=== PATIENT | female | born 1990 | race African-American/Black ===

== ENCOUNTER 2016-12-02 00:32 | Emergency (ER) | payer MEDICAID ==
[~2016-12-02] VITALS: Ht 177.8 cm; Wt 61.2 kg
[2016-12-02 00:45] VITALS: BP 140/87
[2016-12-02] MEDS ORDERED: Tylenol #3 tab (300mg/30mg) ORAL ONE (01:15)
[2016-12-02] MEDS ORDERED: Ketorolac 30mg Inj IM ONE (02:00)
[2016-12-02] MEDS ORDERED: CYCLOBENZAPRINE10 MG ORAL (02:42)
[2016-12-02] MEDS ORDERED: ACETAMINOPHEN-1 EAC1 ORAL (02:42)
[2016-12-02 02:50] VITALS: BP 138/85
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
--- NOTE | 2016-12-02 08:33 | Diagnostic Imaging Report ---
Indications: Cephalgia Technique: Continuous helical CT imaging of the brain was performed with automatic exposure control on a Siemens sensation [address] scanner. Axial and coronal images were reconstructed at 5 mm slice thickness and interval. CTDI volume(s): 70 mGy Total DLP: Routine 18 mGy-cm Findings: Comparison: None. Intracranial anatomy is unremarkable. No evidence of mass or hemorrhage, other attenuation abnormality, mass effect, midline shift, hydrocephalus or increased intracranial pressure. Bone window images are unremarkable. Visualized paranasal sinuses and mastoid air cells are clear. IMPRESSION: Negative noncontrast CT scan of the brain . This correlates with [facility] preliminary report. The CT scanner at [facility] is accredited by the [employer] and the scans are performed using protocols designed to limit radiation exposure to as low as reasonably achievable to attain images of sufficient resolution adequate for diagnostic evaluation.
== END 2016-12-02 02:50 | disposition home or self-care (01) ==
LOC: EMR 00:55
DX: S20.212A Contusion of left front wall of thorax, initial encounter (principal); S09.90XA Unspecified injury of head, initial encounter; V43.52XA Car driver injured in collision with other type car in traffic accident, initial encounter; Y92.410 Unspecified street and highway as the place of occurrence of the external cause; Y99.8 Other external cause status
CPT/HCPCS: 70450; 71100; 96372; 99284; J1885

== ENCOUNTER 2016-12-16 19:21 | Emergency (ER) | payer MEDICAID ==
[~2016-12-16] VITALS: Ht 177.8 cm; Wt 61.2 kg
[~2016-12-16 19:21] MED LIST: ACETAMINOPHEN-1 EAC1 ORAL; CYCLOBENZAPRINE10 MG ORAL
[2016-12-16 19:44] VITALS: BP 130/74
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
[2016-12-16] MEDS ORDERED: IBUPROFEN600 MG ORAL (20:02)
[2016-12-16 20:05] VITALS: BP 128/77
== END 2016-12-16 20:07 | disposition home or self-care (01) ==
LOC: EMR 19:55
DX: M54.2 Cervicalgia (principal); Z76.0 Encounter for issue of repeat prescription
CPT/HCPCS: 99283